=== PATIENT | female | born 1990 | race African-American/Black ===

== ENCOUNTER 2022-08-22 06:31 | Inpatient (IN) | payer SELFPAY ==
[2022-08-22] MEDS ORDERED: Carboprost Tromethamine 250 MCG/1 ML Amp IM PRN (06:57)
[2022-08-22] MEDS ORDERED: Lidocaine 1% 50 ML MDV INJECT PRN (06:57)
[2022-08-22] MEDS ORDERED: Misoprostol 200 MCG Tab PO PRN (06:57)
[2022-08-22] MEDS ORDERED: Sodium Chloride 0.9% 10 ML Syringe FLUSH PRN (06:57)
[2022-08-22] MEDS ORDERED: Sodium Chloride 0.9% 20 ML SDV IV PRN (06:57)
[2022-08-22] MEDS ORDERED: Tranexamic Acid 1,000 MG in Sodium Chloride 0.9% 100 ML IV PRN (06:57)
[2022-08-22] MEDS ORDERED: Butorphanol 1 MG/ML SDV IVPUSH PRN (06:57)
[2022-08-22] MEDS ORDERED: Terbutaline 1 MG/ML SDV SUBCUT PRN (06:57)
[2022-08-22] MEDS ORDERED: Sodium Chloride 0.9% 2.5 ML Syringe FLUSH PRN (06:57)
[2022-08-22] MEDS ORDERED: Methylergonovine 0.2 MG/1 ML Amp IM PRN (06:57)
[2022-08-22] MEDS ORDERED: Water For Irrigation,Sterile 1,000 ML Container IRR PRN (06:57)
[2022-08-22] MEDS ORDERED: Oxytocin/0.9 % Sodium Chloride 30 UNIT/500 ML BAG IV SCH ×2 (07:00)
[2022-08-22] MEDS ORDERED: Lactated Ringers 1,000 ML IV SCH (07:00)
[2022-08-22] MEDS ORDERED: Ampicillin 2 GM AdvVial IV ONE ×2 (07:25→07:26)
[2022-08-22] MEDS ORDERED: Oxytocin/0.9 % Sodium Chloride 30 UNIT/500 ML BAG ONE (07:26)
[2022-08-22] MEDS ORDERED: Ampicillin 2 GM in Sodium Chloride 0.9% 100 ML IV ONE (07:30)
[2022-08-22] MEDS ORDERED: Benzocaine/Menthol 20%-0.5% Spray 78 GM Cannister TOP PRN (08:04)
[2022-08-22] MEDS ORDERED: Bisacodyl 10 MG Supp RECTAL PRN (08:04)
[2022-08-22] MEDS ORDERED: Witch Hazel Medicated Pads 40/Jar TOP PRN (08:04)
[2022-08-22] MEDS ORDERED: Acetaminophen 500 MG Tab PO PRN ×2 (08:04)
[2022-08-22] MEDS ORDERED: Ibuprofen 400 MG Tab PO PRN (08:04)
[2022-08-22] MEDS ORDERED: oxyCODONE 5 MG Tab PO PRN (08:04)
[2022-08-22] MEDS ORDERED: Docusate Sodium 100 MG Cap PO PRN (08:04)
[2022-08-22] MEDS ORDERED: Lanolin 100% Cream 7 GM Tube TOP PRN (08:04)
[2022-08-22] MEDS ORDERED: Ampicillin 1 GM in Sodium Chloride 0.9% 50 ML IV SCH (11:30)
[2022-08-22] MEDS: Ibuprofen 800 MG Tab PO PRN ×2 (12:19→22:00)
[2022-08-23] MEDS: Ibuprofen 800 MG Tab PO PRN (07:56)
== END 2022-08-23 18:30 | disposition home or self-care (01) | DRG 807 ==
LOC: MW.OBCHECK 06:31 → MW.OB 06:34 → MW.OBCHECK 06:56 → MW.OB 06:57 → OBSVTOIN 07:34 → MW.OB 11:19
PROVIDERS: ADMIT Obstetrics & Gynecology; ATTEND Obstetrics & Gynecology
PROC: 10E0XZZ Delivery of Products of Conception, External Approach (ICD-10-PCS; principal; 2022-08-22)
DX: O62.3 Precipitate labor (principal); Z37.0 Single live birth; Z3A.38 38 weeks gestation of pregnancy
CPT/HCPCS: 36415; 82803; 85014; 85018; 85027; 86592; 86850; 86900; 86901; A9270-GY; J2590; U0002